=== PATIENT | female | born 1980 | race Caucasian/White ===

== ENCOUNTER 2022-01-31 10:03 | Observation (INO) | payer BC ==
[2022-01-31] MEDS ORDERED: PREN-96 PO (10:47)
== END 2022-01-31 12:40 | disposition home or self-care (01) ==
LOC: LDRP 10:03 → EDBD 10:03
PROVIDERS: ADMIT Obstetrics & Gynecology; ATTEND Obstetrics & Gynecology
DX: O69.81X0 Labor and delivery complicated by cord around neck, without compression, not applicable or unspecified (principal); Z3A.37 37 weeks gestation of pregnancy
CPT/HCPCS: 59025; 76818; 81002; G0378

== ENCOUNTER 2022-02-05 09:37 | Observation (INO) | payer BC ==
[~2022-02-05 09:37] MED LIST: PREN-96 PO
== END 2022-02-05 12:01 | disposition home or self-care (01) ==
LOC: UNDOADMOB 09:37 → LDRP 09:37 → UNDODISOB 12:01
PROVIDERS: ADMIT Obstetrics & Gynecology; ATTEND Obstetrics & Gynecology
DX: O69.81X0 Labor and delivery complicated by cord around neck, without compression, not applicable or unspecified (principal); O09.523 Supervision of elderly multigravida, third trimester; Z3A.38 38 weeks gestation of pregnancy
CPT/HCPCS: 59025; 76818; 81002; 94760; G0378

== ENCOUNTER 2022-02-06 13:38 | Observation (INO) | payer BC | END 2022-02-08 10:10 | disposition home or self-care (01) | LOC: LDRP 02-08 08:09 | PROVIDERS: ADMIT Obstetrics & Gynecology; ATTEND Obstetrics & Gynecology | DX: O69.8 Labor and delivery complicated by other cord complications (principal); Z3A.39 39 weeks gestation of pregnancy; Z87.891 Personal history of nicotine dependence | CPT/HCPCS: 59025; 76818; 81002; 82948; G0378 ==